=== PATIENT | male | born 1970 | race Hispanic/Latino ===

== ENCOUNTER 2023-12-24 00:18 | Emergency (ER) | payer BC, OTHER ==
[~2023-12-24] VITALS: Ht 170.2 cm; Wt 67.1 kg
[2023-12-24] MEDS: MORPHINE 4 MG SYG IVP ONE (01:27)
[2023-12-24 01:52] LABS: BASOPHILS # (AUTO) 0.06 K/uL (0.00-0.20); BASOPHILS % (AUTO) 0.8 % (0.0-5.0); EOSINOPHILS # (AUTO) 0.06 K/uL (0.00-0.70); EOSINOPHILS % (AUTO) 0.8 % (0.0-8.0); HEMATOCRIT 41.4 % (42-54); IMMATURE GRANULOCYTE ABSOLUTE 0.02 K/uL (0-1); LYMPHOCYTES # (AUTO) 1.3 K/uL (1.0-4.8); LYMPHOCYTES % (AUTO) 17.1 % (21.0-51.0); MEAN CORPUSCULAR HEMOGLOBIN 30.8 pg (27.0-33.0); MEAN CORPUSCULAR HGB CONC 35.5 g/dL (32.0-36.0); MEAN CORPUSCULAR VOLUME 86.6 fL (79-99); MONOCYTES # (AUTO) 0.6 K/uL (0.1-1.0); MONOCYTES % (AUTO) 8.6 % (3.0-13.0); NEUTROPHILS # (AUTO) 5.3 K/uL (1.8-7.7); NEUTROPHILS % (AUTO) 72.4 % (40.0-77.0); PLATELET COUNT (AUTO) 310 K/uL (130-400); RED BLOOD CELL COUNT(AUTO) 4.78 MIL/uL (4.50-6.20); RED CELL DISTRIBUTION WIDTH 12.1 % (11.0-15.5); WHITE BLOOD COUNT (AUTO) 7.3 K/uL (4.8-10.8)
[2023-12-24 02:03] LABS: POTASSIUM 4.2 mmol/L (3.5-5.1)
[2023-12-24 02:04] LABS: INR <= 0.93 (0.85-1.15); PROTHROMBIN TIME 10.2 SEC (9.6-11.6)
[2023-12-24 02:06] LABS: PARTIAL THROMBOPLASTIN TIME 27.7 SEC (26.3-35.5)
[2023-12-24 02:08] LABS: ALBUMIN 3.8 g/dL (3.5-5.0); BILIRUBIN,TOTAL 0.2 mg/dL (0.2-1.0); TOTAL PROTEIN, SERUM 8.1 g/dL (6.0-8.3)
[2023-12-24] MEDS: ACETAZOLAMIDE SODIUM 500 MG VIAL IV ONE (02:16)
[2023-12-24] MEDS: ACETAZOLAMIDE SODIUM 500 MG VIAL ONE (02:48)
[2023-12-24] MEDS: LATANOPROST 2.5 ML DROPS OU ONE (03:46)
[2023-12-24] MEDS: LATANOPROST 2.5 ML DROPS OU SCH (04:00)
[2023-12-24] MEDS ORDERED: BRIM5DRO5 OP (04:27)
[2023-12-24] MEDS ORDERED: ACET250T3 PO (04:27)
[2023-12-24] MEDS ORDERED: ACET-2079 PO (04:27)
[2023-12-24 04:29] VITALS: BP 131/74; PULSE 74; RESP 14; O2SAT 97
== END 2023-12-24 04:39 | disposition home or self-care (01) ==
LOC: EDH 00:18
DX: H40.9 Unspecified glaucoma (principal); E11.9 Type 2 diabetes mellitus without complications; I10 Essential (primary) hypertension
CPT/HCPCS: 99284; 96374; 96375; 80053; 85025; 85610; 85730; 36415; J1120; J2270

== ENCOUNTER 2024-02-16 22:54 | Emergency (ER) | payer BC ==
[~2024-02-16] VITALS: Ht 170.2 cm; Wt 62.6 kg
[~2024-02-16 22:54] MED LIST: ACET-2079 PO; ACET250T31 PO; BRIM5DRO5 OP; LATA2.5D14 OP; ONDA-104 PO
[2024-02-16 23:29] VITALS: BP 122/81; PULSE 82; RESP 16; O2SAT 98
[2024-02-16] MEDS: TETRACAINE HCL 0.5% 4 ML OPHTH SOLN OP ONE (23:40)
[2024-02-17] MEDS ORDERED: LATA2.5D14 OP (00:06)
[2024-02-17] MEDS ORDERED: ACET-66 PO (00:06)
== END 2024-02-17 00:14 | disposition home or self-care (01) ==
LOC: EDH 22:54
DX: H40.9 Unspecified glaucoma (principal); E11.9 Type 2 diabetes mellitus without complications; I10 Essential (primary) hypertension; Z79.899 Other long term (current) drug therapy